=== PATIENT | female | born 1965 | race Caucasian/White ===

== ENCOUNTER 2019-01-04 06:26 | Day surgery (SDC) | payer OTHER ==
[2019-01-04] MEDS ORDERED: NACL 0.9% 1000 ML 1,000 ML IV SCH (07:00)
--- NOTE | 2019-01-04 07:28 | Anesthesia Consultation ---
Anesthesia Consult and Med Hx Date of service: 01/04/19 - Airway Anesthetic Teeth Evaluation: Good ROM Head & Neck: Adequate Mental/Hyoid Distance: Adequate Mallampati Class: Class III Intubation Access Assessment: Possibly Difficult - Pre-Operative Health Status ASA Pre-Surgery Classification: ASA3 Proposed Anesthetic Plan: MAC - Cardiovascular System Hx Hypertension: Yes - Endocrine Hx Non-Insulin Dependent Diabetes: Yes - Other Systems Hx Obesity: Yes (s/p gastric bypass 14')
--- NOTE | 2019-01-04 07:28 | Anesthesia Day of Surgery ---
Anesthesia Day of Surgery - Day of Surgery Patient Examined: Yes Patient H&P Reviewed: Yes Patient is NPO: Yes
[2019-01-04] MEDS ORDERED: DIPRIVAN 10 MG/ML IV ONE ×2 (08:46)
[2019-01-04] MEDS ORDERED: WATER FOR IRRIG STERILE IR ONE (08:46)
[2019-01-04] MEDS ORDERED: WATER FOR IRRIG STERILE ONE (08:47)
--- NOTE | 2019-01-04 09:03 | Short Stay Summary ---
Short Stay Documentation Date of service: 01/04/19 Narrative H&P: The patient presents for diagnostic colonoscopy for rectal bleeding - History Past Medical History: diabetes, hypertension, other (morbid obesity) Past Surgical History: hysterectomy, Other (gastric bypass surgery) Social history: no significant social history, no smoking, no alcohol abuse, no prescription drug abuse - Allergies and Medications Current Medications: Allergies No Known Allergies Allergy (Verified 12/31/18 13:19) Home Medications Medication Instructions Recorded Confirmed Last Taken Type amLODIPine 10 mg PO DAILY 12/31/18 12/31/18 12/31/18 History Lisinopril 2.5 mg PO DAILY 01/04/19 01/04/19 01/03/19 History Pravastatin 10 mg PO DAILY 01/04/19 01/04/19 01/03/19 History metFORMIN 500 mg PO BID 01/04/19 01/04/19 01/03/19 History Active Medications Sodium Chloride (Nacl 0.9% 1000 Ml) 1,000 mls @ 50 mls/hr IV DIRECT LOBO Last Admin: 01/04/19 08:00 Dose: 50 mls/hr Documented by: - Physical exam General appearance: no acute distress, well-nourished, obese Integumentary: no rash, no growths, no abnormal pigmentation HEENT: Atraumatic, PERRLA, EOMI, Mucous membr. moist/pink Lungs: Clear to auscultation, Normal air movement Breasts: deferred Heart: Regular rate, Normal S1, Normal S2, No murmurs Gastrointestinal: normoactive bowel sounds, no tenderness, no distended, no masses, no guarding, no organomegaly, obese Female Genitourinary: deferred Rectal Exam: normal exam-external/orifice Extremities: no ischemia, pulses intact, pulses symmetrical, No edema, normal temperature, normal color, Full ROM Neurological: Normal gait, Normal speech, Strength at 5/5 X4 ext, Normal tone, Sensation intact, Cranial nerves 3-12 NL - Brief post op/procedure progress note Date of procedure: 01/04/19 Findings: see dictated report Estimated blood loss: none Pathology: none Condition: stable - Disposition Condition at discharge: Good Disposition: DC-01 TO HOME OR SELFCARE - Discharge Diagnoses (1) Hematochezia Status: Acute Short Stay Discharge Plan Activity: other (no driving for 24 hours) Weight Bearing Status: Full Weight Bearing Diet: diabetic Follow up with: FREIDA ORTEGA MD [Primary Care Provider] - 7 Days
--- NOTE | 2019-01-04 09:07 | Operative Report ---
Operative Report Operative Report: Date of procedure: 01/04/2019 Preprocedure diagnosis: Hematochezia Post procedure diagnosis: Aborted colonoscopy due to poor preparation. Procedure: Sigmoidoscopy to the descending colon. Colonoscopy was intended Endoscopist: Dr. Cole Anesthesia: Monitored anesthesia care per anesthesia department Estimated blood loss: 0 Medications: Monitored anesthesia care. See separate report by anesthesia for details. After careful discussion of the nature and purpose of the procedure as well as details of the technique risks benefits and alternatives the patient gave consent. Please see recent history and physical from the office. The patient was placed in the left lateral decubitus position and medicated per anesthesia. A rectal exam was performed sphincter tone was normal there were no masses palpable. The GeoVaxn 570 scope was passed transanally and advanced under continuous direct vision without difficulty to the descending colon colon The colon was well poor with thick liquid stool being present precluding an adequate examination to exclude polyps and for safety. The visible mucosa of the descending colon and sigmoid colon and rectum were unremarkable with there being no mass lesions. Fine mucosal detail was obscured. The rectum was grossly normal on forward view. The procedure was well-tolerated overall and the patient was observed in recovery. Conclusions: Aborted colonoscopy to the descending colon due to poor preparation. Plan: Repeat attempt at colonoscopy in the next 3-4 months with enhanced preparation. Signed electronically: Tutu Cole M.D.
[2019-01-04 10:01] VITALS: BP 119/73
== END 2019-01-04 06:27 | disposition home or self-care (01) ==
LOC: GIO 06:26
PROVIDERS: ATTEND Internal Medicine Gastroenterology
DX: K92.1 Melena (principal); I10 Essential (primary) hypertension; E66.9 Obesity, unspecified; E11.9 Type 2 diabetes mellitus without complications; F32.9 Major depressive disorder, single episode, unspecified; F41.9 Anxiety disorder, unspecified; Z79.899 Other long term (current) drug therapy; Z79.84 Long term (current) use of oral hypoglycemic drugs; Z68.42 Body mass index [BMI] 45.0-49.9, adult; Z98.51 Tubal ligation status; Z90.710 Acquired absence of both cervix and uterus; Z98.890 Other specified postprocedural states
CPT/HCPCS: 45378; 82962; J2704; J7030